=== PATIENT | female | born 1990 | race Caucasian/White ===

== ENCOUNTER 2021-08-14 08:53 | Outpatient (CLI) | payer OTHER | END 2021-08-14 08:58 | disposition home or self-care (01) | LOC: NST 08:53 | PROVIDERS: ATTEND Obstetrics & Gynecology Maternal & Fetal Medicine | DX: O30.002 Twin pregnancy, unspecified number of placenta and unspecified number of amniotic sacs, second trimester (principal) ==

== ENCOUNTER 2021-08-21 10:00 | Outpatient (CLI) | payer OTHER | END 2021-08-21 11:43 | disposition home or self-care (01) | LOC: NST 10:00 | PROVIDERS: ATTEND Obstetrics & Gynecology Maternal & Fetal Medicine | DX: Z34.83 Encounter for supervision of other normal pregnancy, third trimester (principal) ==